=== PATIENT | male | born 1995 | race Caucasian/White ===

== ENCOUNTER 2024-07-17 15:42 | Emergency (ER) | payer OTHER, SELFPAY ==
--- NOTE | ~2024-07-17 | XR_ITS ---
EXAMINATION: XR chest 2V Exam Date/Time: 07/17/2024 16:21 CDT HISTORY: Intermittent pain worse with deep breathing for 1 day Comparison: None. RESULT: Lines, tubes, and devices: None. Lungs and pleura: Motion artifact in the lateral view. Clear. Cardiomediastinal silhouette: Normal. Other: No acute osseous or upper abdominal finding. IMPRESSION: No acute cardiopulmonary process. Reviewed, dictated and finalized at location K.
[2024-07-17 15:57] VITALS: BP 153/74; PULSE 93; RESP 16; TEMP 36.7; O2SAT 100
--- NOTE | 2024-07-17 16:06 | ECG_ITS ---
Test Date: 2024-07-17 16:07:53 Measurements Intervals [place] Rate: 88 P: 17 CO: 136 QRS: 60 QRSD: 97 T: 50 QT: 339 QTc: 410 Interpretive Statements SINUS RHYTHM No previous ECG available for comparison Electronically Signed On 07-17-2024 16:25:39 CDT by Kaitlin Garcia M.D.
--- NOTE | 2024-07-17 16:08 | ED.GENADULT ---
HPI - General Adult General Chief complaint: Chest Pain Stated complaint: pain in chest/pain with inhale Time Seen by Provider: 07/17/24 16:13 Source: patient, RN notes reviewed and old records reviewed Mode of arrival: ambulatory Limitations: no limitations History of Present Illness HPI narrative: 28-year-old male presents to the [facility] chest discomfort anterior lower ribs. Denies any nausea vomiting. States the pain is worse with a deep breath, a dull ache when he is just sitting there. Patient states that started on the right side yesterday, lower anterior ribs. Unable to reproduce pain palpation. Woke up this morning states he felt fine. Today reports left-sided lower rib pain. Again pain worse with deep breathing Patient reports he has had intermittent for ?a while? right-sided discomfort. States that he feels like it was his gallbladder any eats better and goes away. Has not seek medical treatment for the issue Reports that a family member gave him a meloxicam to help with the discomfort Related Data Home Medications Medication Instructions Recorded Confirmed No Home Medications 07/17/24 07/17/24 Allergies Allergy/AdvReac Type Severity Reaction Status Date / Time No Known Allergies Allergy Verified 07/17/24 15:47 Review of Systems Review of Systems: All systems reviewed & are unremarkable except as noted in HPI and below Constitutional: Constitutional: Reports no additional constitutional complaints Eyes: Eyes: Reports no additional eye complaints ENT: Reports system reviewed and no additional complaints, except as documented Cardiovascular: Cardiovascular: Reports no additional cardiovascular complaints, Denies chest pain and Denies dyspnea Respiratory: Respiratory: Reports as per HPI, Denies chest congestion, Denies cough and Denies dyspnea Gastrointestinal: Gastrointestinal: Reports no additional gastrointestinal complaints, Denies abdominal pain, Denies nausea and Denies vomiting Musculoskeletal: Musculoskeletal: Reports no additional musculoskeletal complaints Integumentary/Breasts: Skin/Breast: Reports system reviewed and no additional complaints, except as docu Neurologic: Reports system reviewed and no additional complaints, except as documented Psychiatric: Psychiatric: Reports no additional psychiatric complaints Allergic/Immunologic: Allergic/Immunologic: Reports no additional allergic/immunologic complaints PMFSH Comments At the time of my signature, I reviewed and agree with the nursing past medical, surgical, social, and family history. There is no relevant family history pertinent to the patient complaint. Exam Const: General: cooperative, healthy appearing, comfortable, no acute distress, well developed, alert and well nourished Nutritional Appearance: well nourished Orientation/consciousness: patient oriented x3 Limitations: no limitations HENMT: Head: normal to inspection Ears: hearing grossly normal bilaterally and external ears normal Face/Nose/Sinus: Normal external nose present, Normal nares present, Normal nasal mucous membranes and turbinates present, normal facial exam and face symmetric Face and sinus: normal facial exam and face symmetric Mouth: Yes Normal oral and palatal mucosa present, Yes lip normal and Yes tongue normal Eyes: General: appearance normal, both eyes and all related structures Alignment and Position: alignment normal Periorbital: periorbital findings normal Neck: Neck: normal visual inspection, full ROM, no lymphadenopathy and no meningeal signs Chest: Chest palpation & inspection: normal inspection of the chest Resp: Effort & Inspection: normal respiratory effort and able to speak in complete sentences Auscultation: clear to auscultation bilaterally, no crackles, no rales, no rhonchi and no wheezes Cardio: Rate: regular rate Rhythm: regular rhythm Skin: General skin exam: normal color and no rashes or lesions noted Lesions: no lesion
== END 2024-07-17 16:48 | disposition home or self-care (01) ==
PROVIDERS: Emergency Provider Nurse Practitioner; PCP Physician Assistant Medical
DX: R09.1 Pleurisy (principal); Z86.16 Personal history of COVID-19
CPT/HCPCS: 71046; 93005; 99213; G0463